=== PATIENT | male | born 1950 | race Caucasian/White ===

== ENCOUNTER 2018-02-27 19:03 | Emergency (ER) | payer MEDICARE, MEDICAID ==
[~2018-02-27] VITALS: Ht 188 cm; Wt 150.5 kg
[~2018-02-27 19:03] MED LIST: ALB0.5UD IH; AMLO1TAB48 PO; ASPI-1071 PO; FOLI-43 PO; FURO40TA4 PO; GABA-338 PO; IRBE150T51 PO; METH2.5T PO; METO-539 PO; NAPR-56 PO; NITR0.4T48 SL; POTA10TA19 PO; ZOLP10TA5 PO
[2018-02-27] MEDS ORDERED: morphine 4 MG/ML inj SYRINge IV ONE (21:15)
[2018-02-27] MEDS ORDERED: diphenoxylate/atropine tablet (Lomotil) PO ONE (21:15)
[2018-02-27] MEDS ORDERED: normal saline 1000ML IV soln IVB ONE (21:15)
[2018-02-27] MEDS ORDERED: pantoprazole 40 MG vial IV ONE (21:15)
[2018-02-27 21:53] LABS: BASOPHILS % (AUTO) 0.4 % (0-1); EOSINOPHILS # (AUTO) 0.4 X10'3 (0-0.9); EOSINOPHILS % (AUTO) 3.9 % (0-6); HEMATOCRIT 35.2 % (42.0-52.0); HEMOGLOBIN 11.4 g/dl (14.0-17.9); LYMPHOCYTES # (AUTO) 1.7 X10'3 (1.1-4.8); LYMPHOCYTES % (AUTO) 18.5 % (21-51); MEAN CORPUSCULAR HEMOGLOBIN 30.3 PG (27.0-31.0); MEAN CORPUSCULAR HGB CONC 32.5 % (33.0-36.5); MEAN CORPUSCULAR VOLUME 93.3 FL (78-98); MEAN PLATELET VOLUME 8.5 FL (7.4-10.4); MONOCYTES # (AUTO) 0.3 X10'3 (0-0.9); MONOCYTES % (AUTO) 3.1 % (2-12); NEUTROPHILS # (AUTO) 6.8 X10'3 (1.8-7.7); NEUTROPHILS % (AUTO) 74.1 % (42-75); PLATELET COUNT 249 X10'3 (140-440); RED BLOOD COUNT 3.77 X10'6 (4.70-6.10); RED CELL DISTRIBUTION WIDTH 16.7 % (11.5-14.5); WHITE BLOOD COUNT 9.2 X10'3 (4.5-11.0)
[2018-02-27 22:09] LABS: ALANINE AMINOTRANSFERASE 25 U/L (12-78); ALBUMIN 3.3 G/DL (3.4-5.0); ALBUMIN/GLOBULIN RATIO 0.9 (1.1-1.5); ALKALINE PHOSPHATASE 115 IU/L (46-116); ANION GAP 9 (8-16); ASPARTATE AMINO TRANSFERASE 17 U/L (10-37); BILIRUBIN,TOTAL 0.9 MG/DL (0.1-1.0); BLOOD UREA NITROGEN 15 MG/DL (7-18); BUN/CREATININE RATIO 17.4 (5.4-32.0); CALCIUM 8.9 MG/DL (8.5-10.1); CHLORIDE 101 MMOL/L (99-107); CREATININE 0.86 MG/DL (0.60-1.10); GLUCOSE 83 MG/DL (70-104); LIPASE 72 U/L (73-393); POTASSIUM 4.3 MMOL/L (3.5-5.1); SODIUM 139 MMOL/L (135-145); TOTAL CARBON DIOXIDE 28.9 MMOL/L (24-32); TOTAL PROTEIN 7.1 G/DL (6.4-8.2); eGFR 88 ML/MIN
[2018-02-27] MEDS ORDERED: DIPH1TAB PO (22:32)
[2018-02-27] MEDS ORDERED: CLIN300C85 PO (22:33)
[2018-02-27 22:36] LABS: CLARITY,URINE CLEAR (Clear); COLOR,URINE YELLOW (Yellow); GLUCOSE, URINE NEGATIVE (Neg); KETONES,URINE 15 mg/dl (Neg); LEUKOCYTE ESTERASE ,URINE NEGATIVE (Neg); NITRITES, URINE NEGATIVE (Neg); OCCULT BLOOD,URINE NEGATIVE (Neg); PROTEIN,URINE NEGATIVE (Neg)
[2018-02-27] MEDS ORDERED: bacitracin 15gm ointment TP STA (22:41)
--- NOTE | 2018-02-27 22:41 | NUR ---
[facility]: [phone]
[2018-02-27 22:42] LABS: UA COLLECTION TYPE CLN CATCH MIDSTREAM
[2018-02-27 23:05] VITALS: BP 176/70
== END 2018-02-28 00:37 | disposition home or self-care (01) ==
LOC: ER 19:03
DX: R53.81 Other malaise (principal); R11.2 Nausea with vomiting, unspecified; R19.7 Diarrhea, unspecified; T47.6X5A Adverse effect of antidiarrheal drugs, initial encounter; L03.116 Cellulitis of left lower limb; L03.115 Cellulitis of right lower limb; I25.2 Old myocardial infarction; J44.9 Chronic obstructive pulmonary disease, unspecified; M19.90 Unspecified osteoarthritis, unspecified site; F17.200 Nicotine dependence, unspecified, uncomplicated; Z86.73 Personal history of transient ischemic attack (TIA), and cerebral infarction without residual deficits; Z88.0 Allergy status to penicillin; Z79.82 Long term (current) use of aspirin; Y92.89 Other specified places as the place of occurrence of the external cause
CPT/HCPCS: 36415; 71045; 80053; 81003; 83605; 83690; 84484; 85025; 87040; 93005; 96361; 96374; 99284; C9113; J2270; J7030